=== PATIENT | male | born 1990 | race Caucasian/White ===

== ENCOUNTER → 2016-11-18 | Outpatient (CLI) | payer OTHER ==
[~2016-11-18] MED LIST: SERT-234 PO; TNR25 PO
[2016-11-18 14:51] LABS: COLLECTION PROBLEM NO; DAYS OF ABSTINENCE 5; METHOD OF COLLECTION MASTURBATION; SEMEN COLOR GRAY OR GRAY-WHITE (GRY/GRYWHTE); SEMEN TIME OF COLLECTION 1415; TRANSPORT PROBLEM NO; TYPE OF SPECIMEN CONTAINER CUP
[2016-11-18 14:52] LABS: SEMEN VOLUME 4.8 ML (>1.5)
[2016-11-18 16:16] LABS: SPERM VIABILITY STAIN NOT INDICATED % (>58%)
[2016-11-18 16:45] LABS: PROLACTIN 9.28 ng/mL; TESTOSTERONE,TOTAL 68.59 ng/dl (241-827)
== END | disposition home or self-care (01) ==
LOC: C.LAB 14:36
PROVIDERS: ATTEND Urology
DX: N46.9 Male infertility, unspecified (principal)

== ENCOUNTER → 2017-01-13 | Outpatient (CLI) | payer OTHER ==
[~2017-01-13] MED LIST changes: +GADAVIST IV PRN
--- NOTE | 2017-01-13 08:37 | DIAGNOSTIC IMAGING REPORT ---
ORBIT RADIOGRAPHS 3 VIEWS HISTORY: Pre-MRI screening. COMPARISON: None. FINDINGS: There are no radiopaque foreign bodies identified within the orbits. IMPRESSION: No radiopaque foreign bodies identified within the orbits. Electronically signed by: Jan Musa M.D. 01/13/2017 8:36 AM Dictated Date/Time: 01/13/2017 8:36 AM
--- NOTE | 2017-01-13 09:48 | DIAGNOSTIC IMAGING REPORT ---
BRAIN COMBO FOR PITUITARY CLINICAL HISTORY: Low testosterone. Abnormal pituitary LH and FSH levels. COMPARISON STUDY: No previous studies for comparison. FINDINGS: Imaging was performed in sagittal, coronal, and axial planes. Dynamic imaging through the pituitary was performed. The patient was imaged before and after the administration of 8 cc of intravenous Gadavist. No intra or extra-axial mass lesions are visualized. Axial diffusion-weighted images reveal no evidence of acute or subacute infarction. There is no evidence of hydrocephalus. Proton density T2-weighted and FLAIR images reveal no significant intraparenchymal signal abnormalities. There are no abnormal flow voids. The optic chiasm is unremarkable in appearance. The infundibulum is within the midline. There is no evidence of pathologic pituitary enhancement. The gland measures 3 mm in height. Post gadolinium whole brain images reveal no pathologically enhancing lesions. IMPRESSION: Normal MRI of the brain. Electronically signed by: Adan Perez M.D. 01/13/2017 9:47 AM Dictated Date/Time: 01/13/2017 9:44 AM
[2017-01-13 10:46] LABS: PROLACTIN 9.96 ng/mL; THYROID STIMULATING HORMONE 1.6 uIu/ml (0.300-4.500)
[2017-01-24 19:38] LABS: INSULIN LIKE GROWTH FACTOR-I 104 ng/mL (63-373)
== END | disposition home or self-care (01) ==
LOC: C.RAD 08:15
PROVIDERS: ATTEND Internal Medicine Endocrinology, Diabetes & Metabolism
DX: E29.1 Testicular hypofunction (principal); E34.9 Endocrine disorder, unspecified; R79.9 Abnormal finding of blood chemistry, unspecified; N46.9 Male infertility, unspecified

== ENCOUNTER 2017-07-17 10:06 | Emergency (ER) | payer OTHER ==
[~2017-07-17] VITALS: Ht 182.9 cm; Wt 93.9 kg
[~2017-07-17 10:06] MED LIST changes: -GADAVIST IV PRN
[2017-07-17 10:08] VITALS: TEMP 36.9; Ht 182.9 cm; Wt 93.9 kg
[2017-07-17] MEDS ORDERED: DIPHTHERIA/TETANUS/PERTUSSIS 0.5 ML SYR/VIAL IM. ONE (11:15)
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
[2017-07-17 11:46] VITALS: BP 124/70; PULSE 70; O2SAT 99
[2017-07-17 12:20] LABS: HEPATITIS B AB POS
== END 2017-07-17 11:47 | disposition home or self-care (01) ==
LOC: C.EDB 10:07 → C.EDA 11:47
DX: Z77.21 Contact with and (suspected) exposure to potentially hazardous body fluids (principal); Z23 Encounter for immunization

== ENCOUNTER → 2017-09-01 | Outpatient (CLI) | payer OTHER ==
[~2017-09-01] MED LIST changes: -TNR25 PO
== END | disposition home or self-care (01) ==
LOC: C.LABSPEC 12:35
PROVIDERS: ATTEND Nurse Practitioner Family
DX: Z77.21 Contact with and (suspected) exposure to potentially hazardous body fluids (principal)